=== PATIENT | male | born 1955 | race Caucasian/White ===

== ENCOUNTER 2018-02-17 10:41 | Inpatient (IN) | payer OTHER ==
[2018-02-17 11:03] VITALS: BMI 27.1
--- NOTE | 2018-02-17 13:23 | HP ---
COWS - Scale Resting Pulse: 0= [place] 80 or Below Sweatin= Chills/Flushing Restless Observation: 3= Extraneous Movement Pupil Size: 0= Normal to Room Light (RIGHT EYE; HX LEFT LENS EXTRACTED.) Bone or Joint Aches: 4=Acute Joint/Muscle Pain Runny Nose/ Eye Tearin= Runny Nose/Eyes GI Upset > 30mins: 1= Stomach Cramp (NAUSEA) Tremor Observation: 2= Slight Tremor Visible Yawning Observation: 1= 1-2x During Session Anxiety or Irritability: 2=Irritable/Anxious Goose Flesh Skin: 0=Smooth Skin COWS Score: 16 Admission ROS S - HPI Chief Complaint: HEROIN WITHDRAWAL SX Allergies/Adverse Reactions: Allergies Allergy/AdvReac Type Severity Reaction Status Date / Time No Known Allergies Allergy Verified 02/17/18 11:11 History of Present Illness: 62 Y/O MALE WITH A HX OF HEROIN DEPENDENCE SEEKING DETOX TX. THIS IS PT'S FIRST TIME HERE. PT REPORTS HE WAS REFERRED HERE BY Jodie. PT REPORTS THIS IS HIS FIRST TIME IN TREATMENT. PT CAME IN WITH HIS RX BOTTLE OF HARVONI, LAST TAKEN TODAY TO CONTINUE. Exam Limitations: No Limitations - Ebola screening Have you traveled outside of the country in the last 21 days: No Have you had contact with anyone from an Ebola affected area: No Have you been sick,other than usual withdrawal symptoms: No Do you have a fever: No - Review of Systems Constitutional: Chills, Loss of Appetite, Night Sweats, Changes in sleep EENT: reports: Blurred Vision, Tearing, Nose Congestion, Other (HX "LEFT EYE LENS EXTRACTION 15 YRS AGO") Respiratory: reports: No Symptoms reported Cardiac: reports: No Symptoms Reported GI: reports: Constipated (OIC), Diarrhea, Nausea, Poor Appetite, Poor Fluid Intake, Vomiting : reports: Frequency Musculoskeletal: reports: No Symptoms Reported Integumentary: reports: No Symptoms Reported Neuro: reports: No Symptoms reported Endocrine: reports: No Symptoms Reported Hematology: reports: No Symptoms Reported Psychiatric: reports: Orientated x3 Other Systems: Reviewed and Negative Patient History - Patient Medical History Hx Anemia: No Hx Asthma: No Hx Chronic Obstructive Pulmonary Disease (COPD): No Hx Cardiac Disorders: No Hx Hypertension: No Hx Hypercholesterolemia: No HX Cerebrovascular Accident: No Hx Seizures: No Hx Diabetes: No Hx Gastrointestinal Disorders: No Hx Genitourinary Disorders: No Hx Sexually Transmitted Disorders: No (DENIES) Hx Renal Disease (ESRD): No Hx Thyroid Disease: No Hx Human Immunodeficiency Virus (HIV): No (NEGATIVE HX) Hx Hepatitis C: Yes (CURRENTLY ON HARVONI TREATMENT) Hx Depression: No Hx Suicide Attempt: No (DENIES S/I) Hx Schizophrenia: No - Patient Surgical History Past Surgical History: Yes Hx Neurologic Surgery: No Hx Cataract Extraction: No Hx Cardiac Surgery: No Hx Lung Surgery: No Hx Breast Surgery: No Hx Breast Biopsy: No Hx Abdominal Surgery: No Hx Appendectomy: Yes (1984) Hx Cholecystectomy: No Hx Genitourinary Surgery: No Hx Orthopedic Surgery: No Other Surgical History: LEFT EYE SURGERY 1991 Anesthesia Reaction: No - PPD History Previous Implant?: Yes Documented Results: Negative w/o proof Implanted On Prior [facility] Admission?: No Results: TBD PPD to be Administered?: Yes - Reproductive History Patient is a Female of Child Bearing Age (11 -55 yrs old): No (MALE) - Smoking Cessation Smoking history: Current every day smoker Have you smoked in the past 12 months: Yes Aproximately how many cigarettes per day: 20 Hx Chewing Tobacco Use: No Initiated information on smoking cessation: Yes 'Breaking Loose' booklet given: 02/17/18 - Substance & Tx. History Hx Alcohol Use: No (DENIES) Hx Substance Use: Yes (HEROIN) Substance Use Type: Heroin Hx Substance Use Treatment: No - Substances Abused Heroin Route: Inhalation Frequency: Daily Amount used: 4 BAGS Age of first use: 19 Date of Last Use: 02/16/18 Family Disease History - Family Disease History Family History: Denies Admission Physical Exam S - Vital Signs Vital Signs: Vital Signs - 24 hr 02/17/18 10:57 Temperature 97.5 F L Pulse Rate 63 Respiratory 17 Rate Blood Pressure 133/86 - Physical General Appearance: Yes: Moderate Distress, Irritable, Anxious HEENTM: Yes: EOMI, Normocephalic, ERIBERTO (RIGHT EYE; LEFT EYE OPACITY.), Pharynx Normal, Nasal Congestion Respiratory: Yes: Chest Non-Tender, Lungs Clear, Normal Breath Sounds, No Respiratory Distress Neck: Yes: No masses,lesions,Nodules, Supple, Trachea in good position Breast: Yes: Breast Exam Deferred Cardiology: Yes: Regular Rhythm, Regular Rate, S1, S2 Abdominal: Yes: Normal Bowel Sounds, Non Tender, Flat, Soft Genitourinary: Yes: Other (N/C) Back: Yes: Within Normal Limits Musculoskeletal: Yes: full range of Motion, Gait Steady Extremities: Yes: Normal Range of Motion, Non-Tender 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 NML intact, Fully Oriented, Alert, Motor Strength 5/5 Integumentary: Yes: Dry, Warm Lymphatic: Yes: Within Normal Limits - Diagnostic (1) Opioid dependence with withdrawal Current Visit: Yes Status: Acute (2) Nicotine dependence Current Visit: Yes Status: Acute Qualifiers: Nicotine product type: cigarettes Substance use status: in withdrawal Qualified Code(s): F17.213 - Nicotine dependence, cigarettes, with withdrawal (3) History of insomnia Current Visit: Yes Status: Chronic (4) Hepatitis C Current Visit: Yes Status: Chronic Qualifiers: Viral hepatitis chronicity: chronic Hepatic coma status: without hepatic coma Qualified Code(s): B18.2 - Chronic viral hepatitis C Comment: CURRENTLY ON HARVONI (5) Hx of eye surgery Current Visit: Yes Status: Resolved Cleared for Admission [facility] - Detox or Rehab [facility] Level of Care: Medically Managed Detox Regimen/Protocol: Methadone [facility] Breath Alcohol Content Breath Alcohol Content: 0 Urine Drug Screen - Results Drug Screen Negative: No Urine Drug Screen Results: OPI-Opiates, OXY-Oxycodone
[2018-02-17] MEDS ORDERED: P-EPHED 60MG/TRIPROLIDI 2.5MG TABLET PO PRN (15:17)
[2018-02-17] MEDS ORDERED: LOPERAMIDE HCL 2 MG CAPSULE PO PRN (15:17)
[2018-02-17] MEDS ORDERED: MAG HYDROX/AL HYDROX/SIMETH 30 ML UNIT-DOSE CUP PO PRN (15:17)
[2018-02-17] MEDS ORDERED: guaiFENesin/D-METHORPHAN HB 10 ML UNIT-DOSE CUPS PO PRN (15:17)
[2018-02-17] MEDS ORDERED: ACETAMINOPHEN 325 MG TABLET (FP) PO PRN (15:17)
[2018-02-17] MEDS ORDERED: MAGNESIUM CITRATE 300 ML BOTTLE PO PRN (15:17)
[2018-02-17] MEDS ORDERED: MAGNESIUM HYDROX 2400MG/30ML ORAL SUSPENSION 30 ML CUP PO PRN (15:17)
[2018-02-17] MEDS ORDERED: NICOTINE POLACRILEX 4 MG GUM BUC PRN (15:17)
[2018-02-17] MEDS ORDERED: MENTHOL/PHENOL 1 EACH UD MM PRN (15:17)
[2018-02-17] MEDS ORDERED: IBUPROFEN 400 MG TABLET (FP) PO PRN (15:17)
[2018-02-17] MEDS ORDERED: METHADONE HCL 10 MG TABLET (FOR DETOX USE ONLY) PO ONE ×2 (15:30→23:00)
--- NOTE | 2018-02-17 15:40 | CONSULT ---
[facility] Psychiatric Consult - Data Date of interview: 02/17/18 Admission source: [facility] Identifying data: This is 62 years old male, single, living alone, on SSD, with no psychiatric hospitalization history, reports Heroin dependence, Nicotine dependence, seeking for detox reporting withdrawal symptoms. Substance Abuse History: Smoking history: Current every day smoker. Have you smoked in the past 12 months: Yes. Aproximately how many cigarettes per day: 20. Hx Chewing Tobacco Use: No. Initiated information on smoking cessation: Yes. 'Breaking Loose' booklet given: 02/17/18. - Substance & Tx. History. Hx Alcohol Use: No (DENIES). Hx Substance Use: Yes (HEROIN). Substance Use Type: Heroin. Hx Substance Use Treatment: No. - Substances Abused. Heroin. Route: Inhalation. Frequency: Daily. Amount used: 4 BAGS. Age of first use: 19. 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 No psychiatric medications taking prior to admission Physical/Sexual Abuse/Trauma History: Denies Additional Comment: Observation. Detox Unit Care Protocol Mental Status Exam - Mental Status Exam Alert and Oriented to: Time, Place, Person Cognitive Function: Fair Patient Appearance: Well Groomed Mood: Apprehensive Affect: Mood Congruent Patient Behavior: Cooperative Speech Pattern: Appropriate Voice Loudness: Normal Thought Process: Goal Oriented Thought Disorder: Being Controlled Hallucinations: Denies Suicidal Ideation: Denies Homicidal Ideation: Denies Insight/Judgement: Fair Sleep: Difficulty falling asleep Appetite: Fair Muscle strength/Tone: Normal Gait/Station: Normal Additional Comments: Observation. Detox Unit Care Protocol Psychiatric Findings - Problem List ([place] 1, 2,3) (1) Drug-induced mood disorder Current Visit: Yes Status: Suspected (2) Nicotine dependence Current Visit: Yes Status: Acute Qualifiers: Nicotine product type: cigarettes Substance use status: in withdrawal Qualified Code(s): F17.213 - Nicotine dependence, cigarettes, with withdrawal (3) Opioid dependence with withdrawal Current Visit: Yes Status: Acute (4) Hepatitis C Current Visit: Yes Status: Chronic Qualifiers: Viral hepatitis chronicity: chronic Hepatic coma status: without hepatic coma Qualified Code(s): B18.2 - Chronic viral hepatitis C Comment: CURRENTLY ON HARVONI (5) History of insomnia Current Visit: Yes Status: Chronic - Initial Treatment Plan Initial Treatment Plan: Observation. Detox Unit Care Protocol
[2018-02-17] MEDS: diazePAM 5 MG TABLET PO PRN ×2 (15:48→22:27)
[2018-02-17] MEDS: NICOTINE 21 MG/24 HOURS TOPICAL PATCH TD SCH (15:52)
[2018-02-17 17:53] LABS: URINE APPEARANCE CLEAR; URINE BILIRUBIN NEGATIVE (<2.0 mg/dL); URINE COLOR LTYELLOW; URINE GLUCOSE (UA) NEGATIVE (NEGATIVE); URINE KETONE NEGATIVE (NEGATIVE); URINE LEUK ESTERASE NEGATIVE (NEGATIVE); URINE NITRITE NEGATIVE (NEGATIVE); URINE PROTEIN NEGATIVE (NEGATIVE); URINE UROBILINOGEN NEGATIVE mg/dL (0.2-1.0)
[2018-02-17] MEDS ORDERED: MELATONIN 5 MG TABLETS PO PRN (22:00)
[2018-02-17] MEDS: THIAMINE HCL 100 MG TABLET (FP) PO SCH (22:28)
--- NOTE | 2018-02-17 22:31 | PN ---
[facility] Progress Note Note: Patient reports takes Harvonia at 10pm, order schedule for tomorrow 10AM. order adjusted for tonight. continue to monitor
[2018-02-17] MEDS: PATIENT'S OWN MEDICATION (NON-FORMULARY) (Ledipasvir/Sofosbuvir [Harvoni 90-400 Mg Tablet] PO SCH (23:02)
--- NOTE | 2018-02-18 09:42 | EKG ---
Test Reason : Blood Pressure : / mmHG Vent. Rate : 070 BPM Atrial Rate : 070 BPM P-R Int : 164 ms QRS Dur : 100 ms QT Int : 394 ms P-R-T Axes : 057 -57 053 degrees QTc Int : 425 ms NORMAL SINUS RHYTHM LEFT AXIS DEVIATION INCOMPLETE RIGHT BUNDLE BRANCH BLOCK ABNORMAL ECG NO PREVIOUS ECGS AVAILABLE Confirmed by SALEEM CEBALLOS MD ([id number]) on 02/18/2018 9:42:24 AM Referred By: Confirmed By:SALEEM CEBALLOS MD
[2018-02-18] MEDS ORDERED: PATIENT'S OWN MEDICATION (NON-FORMULARY) (Ledipasvir/Sofosbuvir [Harvoni 90-400 Mg Tablet] PO SCH (10:00)
[2018-02-18] MEDS ORDERED: METHADONE HCL 10 MG TABLET (FOR DETOX USE ONLY) PO ONE (10:00)
[2018-02-18] MEDS: NICOTINE 21 MG/24 HOURS TOPICAL PATCH TD SCH (10:47)
[2018-02-18] MEDS: PRENATAL VITAMINS W/ FOLIC ACID TABLET (FP) PO SCH (10:47)
[2018-02-18 10:48] LABS: HEMATOCRIT 43.7 % (35.4-49); MCH 31.7 pg (25.7-33.7); MCHC 34.3 g/dl (32.0-35.9); MEAN CELL VOLUME 92.4 fl (80-96); PLATELET COUNT 194 K/MM3 (134-434); RBC 4.73 M/mm3 (4.00-5.60); RDW 13.4 % (11.9-15.9); WHITE BLOOD COUNT 7.3 K/mm3 (4.0-10.0)
[2018-02-18] MEDS: diazePAM 5 MG TABLET PO PRN ×3 (10:51→19:02)
[2018-02-18 11:25] LABS: CHLORIDE 103 mmol/L (98-107); POTASSIUM 4.9 mmol/L (3.5-5.1); SODIUM 138 mmol/L (136-145)
--- NOTE | 2018-02-18 11:30 | PN ---
[facility] COWS - Scale Resting Pulse: 0= [place] 80 or Below Sweatin= Chills/Flushing Restless Observation: 3= Extraneous Movement Pupil Size: 1= Pupils >than Normal Bone or Joint Aches: 2= Severe Diffuse Aches Runny Nose/ Eye Tearin= Runny Nose/Eyes GI Upset > 30mins: 2= Nausea/Diarrhea Tremor Observation of Outstretched Hands: 2= Slight Tremor Visible Yawning Observation: 1= 1-2x During Session Anxiety or Irritability: 2=Irritable/Anxious Goose Flesh Skin: 0=Smooth Skin COWS Score: 16 S Progress Note (SOAP) Subjective: alert,irritable,anxious,interrupted sleep,pain in the body Objective: 02/18/18 11:28 Vital Signs Temperature 97.7 F 02/18/18 11:18 Pulse Rate 65 02/18/18 11:18 Respiratory Rate 18 02/18/18 11:18 Blood Pressure 147/84 02/18/18 11:18 O2 Sat by Pulse Oximetry (%) ekg nsr 70/min no chest pain,no sob,no dizziness Laboratory Last Values WBC 7.3 K/mm3 (4.0-10.0) 02/18/18 06:00 RBC 4.73 M/mm3 (4.00-5.60) 02/18/18 06:00 Hgb 15.0 GM/dL (11.7-16.9) 02/18/18 06:00 Hct 43.7 % (35.4-49) 02/18/18 06:00 MCV 92.4 fl (80-96) 02/18/18 06:00 MCH 31.7 pg (25.7-33.7) 02/18/18 06:00 MCHC 34.3 g/dl (32.0-35.9) 02/18/18 06:00 RDW 13.4 % (11.9-15.9) 02/18/18 06:00 Plt Count 194 K/MM3 (134-434) 02/18/18 06:00 MPV 11.0 fl (7.5-11.1) 02/18/18 06:00 Sodium 138 mmol/L (136-145) 02/18/18 06:00 Potassium 4.9 mmol/L (3.5-5.1) 02/18/18 06:00 Chloride 103 mmol/L (98-107) 02/18/18 06:00 Urine Color Ltyellow 02/17/18 15:40 Urine Appearance Clear 02/17/18 15:40 Urine pH 5.0 (5.0-8.0) 02/17/18 15:40 Ur Specific [place] 1.009 (1.001-1.035) 02/17/18 15:40 Urine Protein Negative (NEGATIVE) 02/17/18 15:40 Urine Glucose (UA) Negative (NEGATIVE) 02/17/18 15:40 Urine Ketones Negative (NEGATIVE) 02/17/18 15:40 Urine Blood Negative (NEGATIVE) 02/17/18 15:40 Urine Nitrite Negative (NEGATIVE) 02/17/18 15:40 Urine Bilirubin Negative (<2.0 mg/dL) 02/17/18 15:40 Urine Urobilinogen Negative mg/dL (0.2-1.0) 02/17/18 15:40 Ur Leukocyte Esterase Negative (NEGATIVE) 02/17/18 15:40 HIV 1&2 Antibody Screen Negative 02/17/18 13:00 HIV P24 Antigen Negative 02/17/18 13:00 Assessment: 02/18/18 11:29 withdrawal symptom Plan: continue detox
[2018-02-18 12:05] LABS: ALBUMIN 4.3 g/dl (3.4-5.0); ALK PHOS 64 U/L (45-117); ANION GAP 7 (8-16); BILIRUBIN,TOTAL 0.7 mg/dL (0.2-1.0); BLOOD UREA NITROGEN 10 mg/dL (7-18); CALCIUM 9.5 mg/dL (8.5-10.1); CO2 28 mmol/L (21-32); CREATININE 0.9 mg/dL (0.7-1.3); GLUCOSE,RANDOM 89 mg/dL (74-106); SGOT/AST 21 U/L (15-37); SGPT/ALT 21 U/L (12-78); TOT PROT 7.7 g/dl (6.4-8.2)
[2018-02-18] MEDS: THIAMINE HCL 100 MG TABLET (FP) PO SCH (22:18)
[2018-02-18] MEDS: PATIENT'S OWN MEDICATION (NON-FORMULARY) (Ledipasvir/Sofosbuvir [Harvoni 90-400 Mg Tablet] PO SCH (22:22)
[2018-02-19] MEDS: diazePAM 5 MG TABLET PO PRN ×5 (06:05→23:28)
[2018-02-19] MEDS ORDERED: METHADONE HCL 5 MG TABLET (FOR DETOX USE ONLY) PO ONE (10:00)
[2018-02-19] MEDS: PRENATAL VITAMINS W/ FOLIC ACID TABLET (FP) PO SCH (10:38)
[2018-02-19] MEDS: NICOTINE 21 MG/24 HOURS TOPICAL PATCH TD SCH (10:39)
--- NOTE | 2018-02-19 13:28 | PN ---
[facility] COWS - Scale Resting Pulse: 0= [place] 80 or Below Sweatin= Chills/Flushing Restless Observation: 3= Extraneous Movement Pupil Size: 1= Pupils >than Normal Bone or Joint Aches: 2= Severe Diffuse Aches Runny Nose/ Eye Tearin= Runny Nose/Eyes GI Upset > 30mins: 2= Nausea/Diarrhea Tremor Observation of Outstretched Hands: 2= Slight Tremor Visible Yawning Observation: 1= 1-2x During Session Anxiety or Irritability: 2=Irritable/Anxious Goose Flesh Skin: 0=Smooth Skin COWS Score: 16 S Progress Note (SOAP) Subjective: alert,irritable,anxious,interrupted sleep,tremor,pain in the body and back Objective: 02/19/18 13:26 Vital Signs Temperature 97.5 F L 02/19/18 09:15 Pulse Rate 63 02/19/18 09:15 Respiratory Rate 20 02/19/18 09:15 Blood Pressure 148/84 02/19/18 09:15 O2 Sat by Pulse Oximetry (%) Laboratory Last Values WBC 7.3 K/mm3 (4.0-10.0) 02/18/18 06:00 RBC 4.73 M/mm3 (4.00-5.60) 02/18/18 06:00 Hgb 15.0 GM/dL (11.7-16.9) 02/18/18 06:00 Hct 43.7 % (35.4-49) 02/18/18 06:00 MCV 92.4 fl (80-96) 02/18/18 06:00 MCH 31.7 pg (25.7-33.7) 02/18/18 06:00 MCHC 34.3 g/dl (32.0-35.9) 02/18/18 06:00 RDW 13.4 % (11.9-15.9) 02/18/18 06:00 Plt Count 194 K/MM3 (134-434) 02/18/18 06:00 MPV 11.0 fl (7.5-11.1) 02/18/18 06:00 Sodium 138 mmol/L (136-145) 02/18/18 06:00 Potassium 4.9 mmol/L (3.5-5.1) 02/18/18 06:00 Chloride 103 mmol/L (98-107) 02/18/18 06:00 Carbon Dioxide 28 mmol/L (21-32) 02/18/18 06:00 Anion Gap 7 (8-16) L 02/18/18 06:00 BUN 10 mg/dL (7-18) 02/18/18 06:00 Creatinine 0.9 mg/dL (0.7-1.3) 02/18/18 06:00 Creat Clearance w eGFR > 60 (>60) 02/18/18 06:00 Random Glucose 89 mg/dL (74-106) 02/18/18 06:00 Calcium 9.5 mg/dL (8.5-10.1) 02/18/18 06:00 Total Bilirubin 0.7 mg/dL (0.2-1.0) 02/18/18 06:00 AST 21 U/L (15-37) 02/18/18 06:00 ALT 21 U/L (12-78) 02/18/18 06:00 Alkaline Phosphatase 64 U/L (45-117) 02/18/18 06:00 Total Protein 7.7 g/dl (6.4-8.2) 02/18/18 06:00 Albumin 4.3 g/dl (3.4-5.0) 02/18/18 06:00 Urine Color Ltyellow 02/17/18 15:40 Urine Appearance Clear 02/17/18 15:40 Urine pH 5.0 (5.0-8.0) 02/17/18 15:40 Ur Specific [place] 1.009 (1.001-1.035) 02/17/18 15:40 Urine Protein Negative (NEGATIVE) 02/17/18 15:40 Urine Glucose (UA) Negative (NEGATIVE) 02/17/18 15:40 Urine Ketones Negative (NEGATIVE) 02/17/18 15:40 Urine Blood Negative (NEGATIVE) 02/17/18 15:40 Urine Nitrite Negative (NEGATIVE) 02/17/18 15:40 Urine Bilirubin Negative (<2.0 mg/dL) 02/17/18 15:40 Urine Urobilinogen Negative mg/dL (0.2-1.0) 02/17/18 15:40 Ur Leukocyte Esterase Negative (NEGATIVE) 02/17/18 15:40 RPR Titer Nonreactive (NONREACTIVE) 02/18/18 06:00 HIV 1&2 Antibody Screen Negative 02/17/18 13:00 HIV P24 Antigen Negative 02/17/18 13:00 Assessment: 02/19/18 13:27 withdrawal symptom Plan: continue detox
[2018-02-19] MEDS: PATIENT'S OWN MEDICATION (NON-FORMULARY) (Ledipasvir/Sofosbuvir [Harvoni 90-400 Mg Tablet] PO SCH (22:30)
[2018-02-19] MEDS: THIAMINE HCL 100 MG TABLET (FP) PO SCH (22:30)
[2018-02-20] MEDS: diazePAM 5 MG TABLET PO PRN ×3 (04:50→15:04)
[2018-02-20] MEDS ORDERED: METHADONE HCL 5 MG TABLET (FOR DETOX USE ONLY) PO ONE (10:00)
[2018-02-20] MEDS: PRENATAL VITAMINS W/ FOLIC ACID TABLET (FP) PO SCH (10:52)
[2018-02-20] MEDS: NICOTINE 21 MG/24 HOURS TOPICAL PATCH TD SCH (10:53)
--- NOTE | 2018-02-20 13:05 | PN ---
[facility] Progress Note (SOAP) Subjective: body aches sweat tremor gi distress trouble sleep at night restlessness Objective: 02/20/18 13:04 Vital Signs Temperature 97.2 F L 02/20/18 09:57 Pulse Rate 83 02/20/18 09:57 Respiratory Rate 18 02/20/18 09:57 Blood Pressure 125/93 02/20/18 09:57 O2 Sat by Pulse Oximetry (%) Laboratory Last Values WBC 7.3 K/mm3 (4.0-10.0) 02/18/18 06:00 RBC 4.73 M/mm3 (4.00-5.60) 02/18/18 06:00 Hgb 15.0 GM/dL (11.7-16.9) 02/18/18 06:00 Hct 43.7 % (35.4-49) 02/18/18 06:00 MCV 92.4 fl (80-96) 02/18/18 06:00 MCH 31.7 pg (25.7-33.7) 02/18/18 06:00 MCHC 34.3 g/dl (32.0-35.9) 02/18/18 06:00 RDW 13.4 % (11.9-15.9) 02/18/18 06:00 Plt Count 194 K/MM3 (134-434) 02/18/18 06:00 MPV 11.0 fl (7.5-11.1) 02/18/18 06:00 Sodium 138 mmol/L (136-145) 02/18/18 06:00 Potassium 4.9 mmol/L (3.5-5.1) 02/18/18 06:00 Chloride 103 mmol/L (98-107) 02/18/18 06:00 Carbon Dioxide 28 mmol/L (21-32) 02/18/18 06:00 Anion Gap 7 (8-16) L 02/18/18 06:00 BUN 10 mg/dL (7-18) 02/18/18 06:00 Creatinine 0.9 mg/dL (0.7-1.3) 02/18/18 06:00 Creat Clearance w eGFR > 60 (>60) 02/18/18 06:00 Random Glucose 89 mg/dL (74-106) 02/18/18 06:00 Calcium 9.5 mg/dL (8.5-10.1) 02/18/18 06:00 Total Bilirubin 0.7 mg/dL (0.2-1.0) 02/18/18 06:00 AST 21 U/L (15-37) 02/18/18 06:00 ALT 21 U/L (12-78) 02/18/18 06:00 Alkaline Phosphatase 64 U/L (45-117) 02/18/18 06:00 Total Protein 7.7 g/dl (6.4-8.2) 02/18/18 06:00 Albumin 4.3 g/dl (3.4-5.0) 02/18/18 06:00 Urine Color Ltyellow 02/17/18 15:40 Urine Appearance Clear 02/17/18 15:40 Urine pH 5.0 (5.0-8.0) 02/17/18 15:40 Ur Specific [place] 1.009 (1.001-1.035) 02/17/18 15:40 Urine Protein Negative (NEGATIVE) 02/17/18 15:40 Urine Glucose (UA) Negative (NEGATIVE) 02/17/18 15:40 Urine Ketones Negative (NEGATIVE) 02/17/18 15:40 Urine Blood Negative (NEGATIVE) 02/17/18 15:40 Urine Nitrite Negative (NEGATIVE) 02/17/18 15:40 Urine Bilirubin Negative (<2.0 mg/dL) 02/17/18 15:40 Urine Urobilinogen Negative mg/dL (0.2-1.0) 02/17/18 15:40 Ur Leukocyte Esterase Negative (NEGATIVE) 02/17/18 15:40 RPR Titer Nonreactive (NONREACTIVE) 02/18/18 06:00 HIV 1&2 Antibody Screen Negative 02/17/18 13:00 HIV P24 Antigen Negative 02/17/18 13:00 lab noted Assessment: 02/20/18 13:05 withdrawal sx Plan: continue detox
[2018-02-20 17:51] VITALS: BP 108/74; PULSE 65; TEMP 98.2
--- NOTE | 2018-02-20 18:37 | PN ---
S Progress Note Note: patient did not want to complete treatment,seen by counselor,did not want to wait,signed relaease ama
--- NOTE | 2018-02-20 18:41 | DS ---
[facility] Detox Discharge Summary Admission Date: 02/17/18 Discharge Date: 02/20/18 - History Present History: Opioid Dependence Additional Comments: patient did not want to complete treatment,signed release ama,did not want to wait Pertinent Past History: hepatitis c - Physical Exam Results Vital Signs: Vital Signs Temperature 98.2 F 02/20/18 17:50 Pulse Rate 65 02/20/18 17:50 Respiratory Rate 18 02/20/18 17:50 Blood Pressure 108/74 02/20/18 17:50 O2 Sat by Pulse Oximetry (%) Pertinent Admission Physical Exam Findings: withdrawal signs and symptom Laboratory Last Values WBC 7.3 K/mm3 (4.0-10.0) 02/18/18 06:00 RBC 4.73 M/mm3 (4.00-5.60) 02/18/18 06:00 Hgb 15.0 GM/dL (11.7-16.9) 02/18/18 06:00 Hct 43.7 % (35.4-49) 02/18/18 06:00 MCV 92.4 fl (80-96) 02/18/18 06:00 MCH 31.7 pg (25.7-33.7) 02/18/18 06:00 MCHC 34.3 g/dl (32.0-35.9) 02/18/18 06:00 RDW 13.4 % (11.9-15.9) 02/18/18 06:00 Plt Count 194 K/MM3 (134-434) 02/18/18 06:00 MPV 11.0 fl (7.5-11.1) 02/18/18 06:00 Sodium 138 mmol/L (136-145) 02/18/18 06:00 Potassium 4.9 mmol/L (3.5-5.1) 02/18/18 06:00 Chloride 103 mmol/L (98-107) 02/18/18 06:00 Carbon Dioxide 28 mmol/L (21-32) 02/18/18 06:00 Anion Gap 7 (8-16) L 02/18/18 06:00 BUN 10 mg/dL (7-18) 02/18/18 06:00 Creatinine 0.9 mg/dL (0.7-1.3) 02/18/18 06:00 Creat Clearance w eGFR > 60 (>60) 02/18/18 06:00 Random Glucose 89 mg/dL (74-106) 02/18/18 06:00 Calcium 9.5 mg/dL (8.5-10.1) 02/18/18 06:00 Total Bilirubin 0.7 mg/dL (0.2-1.0) 02/18/18 06:00 AST 21 U/L (15-37) 02/18/18 06:00 ALT 21 U/L (12-78) 02/18/18 06:00 Alkaline Phosphatase 64 U/L (45-117) 02/18/18 06:00 Total Protein 7.7 g/dl (6.4-8.2) 02/18/18 06:00 Albumin 4.3 g/dl (3.4-5.0) 02/18/18 06:00 Urine Color Ltyellow 02/17/18 15:40 Urine Appearance Clear 02/17/18 15:40 Urine pH 5.0 (5.0-8.0) 02/17/18 15:40 Ur Specific [place] 1.009 (1.001-1.035) 02/17/18 15:40 Urine Protein Negative (NEGATIVE) 02/17/18 15:40 Urine Glucose (UA) Negative (NEGATIVE) 02/17/18 15:40 Urine Ketones Negative (NEGATIVE) 02/17/18 15:40 Urine Blood Negative (NEGATIVE) 02/17/18 15:40 Urine Nitrite Negative (NEGATIVE) 02/17/18 15:40 Urine Bilirubin Negative (<2.0 mg/dL) 02/17/18 15:40 Urine Urobilinogen Negative mg/dL (0.2-1.0) 02/17/18 15:40 Ur Leukocyte Esterase Negative (NEGATIVE) 02/17/18 15:40 RPR Titer Nonreactive (NONREACTIVE) 02/18/18 06:00 HIV 1&2 Antibody Screen Negative 02/17/18 13:00 HIV P24 Antigen Negative 02/17/18 13:00 Vital Signs Temperature 98.2 F 02/20/18 17:50 Pulse Rate 65 02/20/18 17:50 Respiratory Rate 18 02/20/18 17:50 Blood Pressure 108/74 02/20/18 17:50 O2 Sat by Pulse Oximetry (%) - Medication Discharge Medications: Ambulatory Orders Ledipasvir/Sofosbuvir [Harvoni 90-400 mg Tablet] 1 each PO DAILY 02/17/18 - Diagnosis (1) Opioid dependence with withdrawal Current Visit: Yes Status: Acute (2) Nicotine dependence Current Visit: Yes Status: Acute Qualifiers: Nicotine product type: cigarettes Substance use status: in withdrawal Qualified Code(s): F17.213 - Nicotine dependence, cigarettes, with withdrawal (3) Hepatitis C Current Visit: Yes Status: Chronic Qualifiers: Viral hepatitis chronicity: chronic Hepatic coma status: without hepatic coma Qualified Code(s): B18.2 - Chronic viral hepatitis C (4) History of insomnia Current Visit: Yes Status: Chronic (5) Drug-induced mood disorder Current Visit: Yes Status: Suspected - AMA Did Patient Leave Against Medical Advice: Yes
[2018-02-21] MEDS ORDERED: METHADONE HCL 10 MG TABLET (FOR DETOX USE ONLY) PO ONE (10:00)
[2018-02-22] MEDS ORDERED: METHADONE HCL 5 MG TABLET (FOR DETOX USE ONLY) PO ONE (06:00)
== END 2018-02-20 18:55 | disposition left against medical advice (07) | DRG 894 ==
LOC: YASAS 10:41 → Y6N 13:51
PROVIDERS: ADMIT Surgery; ATTEND Surgery
PROC: HZ2ZZZZ Detoxification Services for Substance Abuse Treatment (ICD-10-PCS; principal; 2018-02-17)
DX: F17.213 Nicotine dependence, cigarettes, with withdrawal (principal); F19.24 Other psychoactive substance dependence with psychoactive substance-induced mood disorder; G47.00 Insomnia, unspecified; B18.2 Chronic viral hepatitis C; H54.61 Unqualified visual loss, right eye, normal vision left eye
CPT/HCPCS: 36415; 80053; 81003; 85027; 86593; 87389; 93005; 93010